=== PATIENT | male | born 1945 | race Caucasian/White ===

== ENCOUNTER 2022-07-01 07:53 | Day surgery (SDC) | payer MEDICARE, BC ==
[~2022-07-01 07:53] MED LIST: Acetaminophen 325 MG Tab PO SCH; EPINEPHrine 1 MG/ML SDV ONE; Lactated Ringers 1,000 ML IV SCH; Lidocaine 1% 5 ML VIAL ONE; Lidocaine 1%/Sod Bicarbonate in NS 8.4% 1 ML Syringe IDERM PRN; Midazolam 1 MG/ML 2 ML SDV ONE; Morphine 8 MG, EPINEPHrine 0.3 MG, Cefuroxime 750 MG, Ketorolac 30 MG, Sodium Chloride ... PRN; Ondansetron 4 MG/2 ML SDV ONE; Pregabalin 25 MG Cap PO SCH; Propofol 200 MG/20 ML SDV ONE; Ropivacaine 0.5% 5 MG/ML 30 ML SDV ONE; Sodium Chloride 0.9% 10 ML Syringe FLUSH PRN; Sodium Chloride 0.9% 10 ML Syringe FLUSH SCH; Tranexamic Acid 1,000 MG/10 ML Vial ONE; Vancomycin 1 GM SDV ONE; fentaNYL 100 MCG/2 ML SDV ONE; oxyCODONE ER 10 MG TAB.ER PO SCH
[2022-07-01] MEDS ORDERED: ceFAZolin 2 GM Vial ONE (07:56)
[2022-07-01] MEDS ORDERED: ePHEDrine 50 MG/ML SDV ONE (09:18)
[2022-07-01] MEDS ORDERED: Dexamethasone 4 MG/ML 5 ML MDV ONE (09:20)
[2022-07-01] MEDS ORDERED: Ketamine 500 mg/10 ML MDV ONE (09:20)
[2022-07-01] MEDS ORDERED: Lactated Ringers 1,000 ML ONE (09:33)
[2022-07-01] MEDS ORDERED: Dexmedetomidine 200 MCG/2 ML SDV ONE (10:00)
[2022-07-01] MEDS ORDERED: Propofol 200 MG/20 ML SDV ONE (10:05)
[2022-07-01] MEDS ORDERED: Ketorolac 15 MG/ML SDV ONE (10:15)
[2022-07-01] MEDS ORDERED: oxyCODONE 5 MG Tab PO PRN (10:27)
[2022-07-01] MEDS ORDERED: Ondansetron 4 MG/2 ML SDV IVPUSH PRN (10:39)
[2022-07-01] MEDS ORDERED: HYDROmorphone 0.5 MG/0.5 ML Syringe IVPUSH PRN (10:39)
[2022-07-01] MEDS ORDERED: fentaNYL 100 MCG/2 ML SDV IVPUSH PRN (10:39)
== END 2022-07-01 14:04 | disposition home or self-care (01) ==
LOC: JD.SDS 07:53
PROVIDERS: ATTEND Orthopaedic Surgery
DX: M17.12 Unilateral primary osteoarthritis, left knee (principal); E78.00 Pure hypercholesterolemia, unspecified; G47.33 Obstructive sleep apnea (adult) (pediatric); E11.9 Type 2 diabetes mellitus without complications; N40.0 Benign prostatic hyperplasia without lower urinary tract symptoms; Z88.0 Allergy status to penicillin; Z88.2 Allergy status to sulfonamides; Z88.1 Allergy status to other antibiotic agents; Z79.899 Other long term (current) drug therapy; Z79.84 Long term (current) use of oral hypoglycemic drugs; Z98.890 Other specified postprocedural states; Z79.82 Long term (current) use of aspirin
CPT/HCPCS: 0055T; 27447; 64447; 73560; 97116; 97161; A9270; C1713; C1776; J0171; J0690; J0697; J1100; J1885; J2250; J2270; J2405; J2704; J2795; J3010; J3370; J3490; J7120; 01402; 99100

== ENCOUNTER 2023-04-07 09:03 | Emergency (ER) | payer MEDICARE, BC ==
[2023-04-07] MEDS ORDERED: Linezolid 600 MG Tab PO STA (12:06)
[2023-04-07] MEDS ORDERED: Linezolid 600 MG in Premix Bag 1 BAG IV ONE (12:06)
== END 2023-04-07 14:15 | disposition home or self-care (01) ==
LOC: JD.ED 09:03
DX: L76.82 Other postprocedural complications of skin and subcutaneous tissue (principal); E78.00 Pure hypercholesterolemia, unspecified; Z79.899 Other long term (current) drug therapy; Z79.82 Long term (current) use of aspirin; Z88.0 Allergy status to penicillin; Z88.1 Allergy status to other antibiotic agents; Z88.2 Allergy status to sulfonamides
CPT/HCPCS: 96365; 99283; J2020